=== PATIENT | male | born 1965 | race Caucasian/White ===

== ENCOUNTER 2016-10-31 22:41 | Emergency (ER) | payer OTHER ==
[~2016-10-31] VITALS: Ht 167.6 cm; Wt 81.0 kg
[2016-11-01 00:39] LABS: HEMATOCRIT 44.5 % (38.0-50.0); MCH 29.5 PG (29.0-34.0); MCHC 35.3 G/DL (30.0-36.0); MCV 83.6 FL (86-99); MEAN PLAT.VOLUME 8.6 uM^3 (9.0-12.4); PLATELET COUNT 238 K/uL (156-360); RBC DIS.WIDTH-CV 12.9 % (11.8-14.6); RBC DIS.WIDTH-SD 39.4 % (39-53); RED BLOOD COUNT 5.32 M/uL (4.00-5.50); WHITE BLOOD COUNT 8.2 K/uL (4.1-10.2)
[2016-11-01 00:50] LABS: CHLORIDE 103 mEq/L (99-109); POTASSIUM 3.9 mEq/L (3.7-5.4); SODIUM 139 mEq/L (136-147)
[2016-11-01 00:52] LABS: GLUCOSE 99 mg/dL (70-99)
[2016-11-01 00:53] LABS: ANION GAP 10 MEQ/L (2-14)
[2016-11-01 00:56] LABS: GFR ESTIMATE (CALCULATED) > 59 mL/min/
[2016-11-01 00:57] LABS: UREA NITROGEN (BUN) 10 mg/dL (9-23)
[2016-11-01] MEDS ORDERED: NORCO 5/3251 TABLET PO (02:57)
[2016-11-01 03:23] VITALS: BP 119/88
[2016-11-02] MEDS ORDERED: NAPROSYN500 MG PO (13:28)
== END 2016-11-01 03:24 | disposition home or self-care (01) ==
LOC: EME 22:41
PROVIDERS: Nurse Practitioner Family
PROC: 2W3RX1Z Immobilization of Left Lower Leg using Splint (ICD-10-PCS; principal; 2016-11-01)
DX: S93.402A Sprain of unspecified ligament of left ankle, initial encounter (principal); W18.2XXA Fall in (into) shower or empty bathtub, initial encounter; Y92.002 Bathroom of unspecified non-institutional (private) residence as the place of occurrence of the external cause; Z98.890 Other specified postprocedural states; S82.302D Unspecified fracture of lower end of left tibia, subsequent encounter for closed fracture with routine healing; Z72.0 Tobacco use
CPT/HCPCS: 73610; 73630; 80048; 85027; 99281; 99284

== ENCOUNTER 2016-11-02 11:02 | Emergency (ER) | payer OTHER ==
[~2016-11-02] VITALS: Ht 167.6 cm; Wt 86.3 kg
[~2016-11-02 11:02] MED LIST: NORCO 5/3251 TABLET PO
[2016-11-02] MEDS ORDERED: NAPROSYN500 MG PO (13:28)
[2016-11-02 13:47] VITALS: BP 111/66
== END 2016-11-02 13:48 | disposition home or self-care (01) ==
LOC: RME 11:02 → EME 11:02 → RME 13:48
DX: M25.572 Pain in left ankle and joints of left foot (principal); S93.402D Sprain of unspecified ligament of left ankle, subsequent encounter; Z72.0 Tobacco use; W18.30XA Fall on same level, unspecified, initial encounter
CPT/HCPCS: 99281; 99283